=== PATIENT | male | born 1990 | race Caucasian/White ===

== ENCOUNTER 2019-04-26 18:28 | Emergency (ER) | payer OTHER ==
[2019-04-26] MEDS ORDERED: Proparacaine 0.5% Opth 15 ML BOT ONE (18:50)
[2019-04-26] MEDS ORDERED: Fluorescein Opthalmic Strip ONE (18:50)
== END 2019-04-26 20:09 | disposition home or self-care (01) ==
LOC: ERS 18:28
DX: S05.02XA Injury of conjunctiva and corneal abrasion without foreign body, left eye, initial encounter (principal); X58.XXXA Exposure to other specified factors, initial encounter
CPT/HCPCS: 99283